=== PATIENT | female | born 2000 | race Asian ===

== ENCOUNTER → 2019-07-21 | Outpatient (CLI) | payer OTHER ==
[2019-07-22 07:07] LABS: RUBEOLA (MEASLES) IGG <13.5 AU/mL (Immune >16.4)
== END | disposition home or self-care (01) ==
LOC: EMPHLTH 08:53
PROVIDERS: ATTEND Internal Medicine
DX: Z02.1 Encounter for pre-employment examination (principal)
CPT/HCPCS: 86706; 86735; 86762; 86765; 86787

== ENCOUNTER 2019-11-28 17:40 | Emergency (ER) | payer SELFPAY ==
[~2019-11-28] VITALS: Ht 149.9 cm; Wt 37.3 kg
[2019-11-28] MEDS ORDERED: ETHI1TAB25 PO (17:44)
[2019-11-28 17:53] VITALS: BP 126/86
== END 2019-11-28 18:21 | disposition home or self-care (01) ==
LOC: EMS 17:40
DX: Z03.818 Encounter for observation for suspected exposure to other biological agents ruled out (principal); Z79.899 Other long term (current) drug therapy
CPT/HCPCS: 99283; U0003

== ENCOUNTER 2023-07-26 13:12 | Emergency (ER) | payer BC, MEDICAID, OTHER ==
[~2023-07-26] VITALS: Ht 149.9 cm; Wt 41.4 kg
[~2023-07-26 13:12] MED LIST: ETHI1TAB25 PO
[2023-07-26 13:16] VITALS: TEMP 98
[2023-07-26 13:38] LABS: COVID AG,FIA SOURCE NASAL SWAB
[2023-07-26 14:05] LABS: SARS-COV2 (COVID) ANTIGEN,FIA Negative (Negative)
[2023-07-26 14:06] LABS: INFLUENZA TYPE A NEGATIVE FOR TYPE A (NEGATIVE); INFLUENZA TYPE B NEGATIVE FOR TYPE B (NEGATIVE)
[2023-07-26] MEDS ORDERED: AMOX1TAB16 PO (14:45)
[2023-07-26] MEDS ORDERED: OXYM15SP57 NASAL (14:46)
[2023-07-26 14:55] VITALS: BP 127/85; PULSE 136; RESP 18
== END 2023-07-26 17:45 | disposition home or self-care (01) ==
LOC: EMS 13:20
DX: J32.9 Chronic sinusitis, unspecified (principal); Z20.822 Contact with and (suspected) exposure to COVID-19
CPT/HCPCS: 87804; 99283